=== PATIENT | male | born 1965 | race Caucasian/White ===

== ENCOUNTER 2018-08-13 17:43 | Emergency (ER) | payer BC, OTHER ==
[~2018-08-13] VITALS: Ht 177.8 cm; Wt 99.8 kg
[~2018-08-13 17:43] MED LIST: MTP25TSR PO
--- OUTSIDE RECORDS SUMMARY | 2018-08-13 17:48 | XMS REPORT | Continuity of Care Document ---
Author Author [facility] Organization [facility] Address Unknown Phone Unavailable Care Team Providers Care Manager Subway Name Role Phone MESSI ESQUIVEL Alexis DO PP Insurance Providers Payer Name Policy Number Subscriber Name Relationship [facility] [id number] Melissa Camryn 02 Advance Directives Directive Response Recorded Date Advance Directives N 10/17/12 4:54am Health Care Power of Greenhouse Superintendent N 10/17/12 4:54am Organ Donor Y 10/17/12 4:54am Problems No Known Problems or Medical conditions. Family History History Response Recorded Date/Time Hx Family Cancer Y mother kidney 4:55am Hx Family Lung Cancer Y sister 10/17/12 4 :55am Hx Family Cardiac Disorders N 10/17/12 4: 55am Social History History Response Recorded Date/Time Alcohol Use Occasionally Uses 10/17/12 4: 54am Recreational Drug Use N 10/17/12 4:54am Allergies, Adverse Reactions, Alerts Allergen Type Severity Reaction Last Updated Poison Sandy Extract Allergy Mild 10/17/12 tb-michele Allergy 10/17/12 Medications Medication Dose Units Route Sig Qty Days Metoprolol Succinate (Toprol Xl 25MG) 25 Mg PO DAILY Immunizations Name Given Type Date of Pneumonia Vaccine 09/20/11 H Date of Influenza Vaccine 01/20/12 H Response Recorded Date/Time Status not known Unknown Results No Known Relevant Diagnostic Tests, Laboratory Data and/or Discharge Summary.
--- OUTSIDE RECORDS SUMMARY | 2018-08-13 17:48 | XMS REPORT | Continuity of Care Document ---
Author Organization Unknown Address Unknown Allergies Active Description Code Type Severity Reaction Onset Reported/Identified Relationship to Patient Clinical Status Yes poison cornell extract [id number] Drug Allergy Mild N/A 10/17/2012 Yes tb-michele tb-michele Unknown N/A 10/17/2012 Medications There is no data. Problems Date Dx Coded Attending Type Code Diagnosis Diagnosed By 10/17/2012 ALICE AVITIA FACC, MARISA MADISON CCDS Ot 401.9 HYPERTENSION NOS 10/17/2012 ALICE AVITIA FACC, MARISA MADISON CCDS Ot 427.69 PREMATURE BEATS NEC 10/17/2012 MARISA JENKINS MD, FACC, FACP CCDS Ot 785.1 PALPITATIONS 10/17/2012 MARISA JENKINS MD, FACC, FACP CCDS Ot 786.50 CHEST PAIN NOS 09/23/2014 BAIMA, ROYCE L SHIM PLUG CUTTER Ot 785.1 07/18/2016 BAIMA, ROYCE L SHIM PLUG CUTTER Ot 785.1 PALPITATIONS 08/06/2017 BAIMA, ROYCE L SHIM PLUG CUTTER Ot 785.1 PALPITATIONS 06/19/2018 BAIMA, ROYCE L SHIM PLUG CUTTER Ot 785.1 PALPITATIONS Procedures There is no data. Results There is no data. Encounters ACCT No. Visit Date/Time Discharge Status Pt. Type Provider Facility Loc./Unit Complaint [id number] 01/20/2013 08:59:00 01/20/2013 23:59:59 CLS Outpatient ROYCE PENNY L SHIM PLUG CUTTER [facility] CARD PALPITATIONS [id number] 10/17/2012 03:12:00 10/17/2012 15:00:00 DIS Outpatient MARISA JENKINS MD, FACC, FACP CCDS [facility] CATH CHEST PAIN [id number] 08/13/2018 17:44:00 ACT Emergency ENEDINA TAYLOR MD [facility] ER DENTAL PAIN
--- OUTSIDE RECORDS SUMMARY | 2018-08-13 17:48 | XMS REPORT | Continuity of Care Document ---
Author Author [facility] Organization [facility] Address Unknown Phone Unavailable Care Team Providers Care Skin Diving Teacher Name Role Phone MESSI ESQUIVEL DO PP Insurance Providers Payer Name Policy Number Subscriber Name Relationship [facility] [id number] MelissaCamryn verdin 02 Advance Directives Directive Response Recorded Date Advance Directives N 10/17/12 4:54am Health Care Power of Solar Energy Systems Designer N 10/17/12 4:54am Organ Donor Y 10/17/12 [...] Recorded Date/Time Status not known Unknown Results Test Date Result Interp. Ref. Range Activated Partial Thromboplast Time October 17, 2012 2:50am 28 SEC N 24-35 Alanine Aminotransferase (ALT/SGPT) October 17, 2012 2:50am 65 U/L N 30-65 Albumin October 17, 2012 2:50am 4.2 G/DL N 3.4-5.0 Alkaline Phosphatase October 17, 2012 2:50am 122 U/L N 50-136 Aspartate Amino Transf (AST/SGOT) October 17, 2012 2:50am 31 U/L N 15-37 BUN/Creatinine Ratio October 17, 2012 2:50am 11 - Basophils # (Auto) October 17, 2012 2:50am 0.0 10^3/uL N 0.0-0.1 Basophils (%) (Auto) October 17, 2012 2:50am 0 % N 0-10 Blood Urea Nitrogen October 17, 2012 2:50am 15 MG/DL N 7-18 Calcium Level October 17, 2012 2:50am 8.9 MG/DL N 8.5-10.1 Carbon Dioxide Level October 17, 2012 2:50am 29 MMOL/L N 21-32 Chloride Level October 17, 2012 2:50am 98 MMOL/L L 101-110 Creatine Kinase MB October 17, 2012 2:50am 2.3 NG/ML N 0.0-3.6 Creatinine October 17, 2012 2:50am 1.4 MG/ DL H 0.6-1.3 Eosinophils # (Auto) October 17, 2012 2:50am 0.1 10^3/uL N 0.0-0.3 Eosinophils (%) (Auto) October 17, 2012 2:50am 1 % N 0-10 Glucose Level October 17, 2012 2:50am 108 MG/DL H 74-106 Hematocrit October 17, 2012 2:50am 43 % N 40-54 Hemoglobin October 17, 2012 2:50am 15.1 G/ DL N 13.3-17.7 Lymphocytes # (Auto) October 17, 2012 2:50am 3.1 X 10^3 N 1.0-4.0 Lymphocytes (%) (Auto) October 17, 2012 2:50am 34 % N 12-44 Magnesium Level October 17, 2012 2:50am 2.1 MG/DL N 1.8-2.4 Mean Corpuscular Hemoglobin October 17, 2012 2:50am 31 PG N 25-34 Mean Corpuscular Hemoglobin Concent October 17, 2012 2:50am 35 G/DL N 32-36 Mean Corpuscular Volume October 17, 2012 2:50am 90 FL N 80-99 Mean Platelet Volume October 17, 2012 2:50am 8.9 FL N 7.4-10.4 Monocytes # (Auto) October 17, 2012 2:50am 0.9 X 10^3 N 0.0-1.0 Monocytes (%) (Auto) October 17, 2012 2:50am 10 % N 0-12 Myoglobin October 17, 2012 2:50am 89 UG/L N 10-92 Neutrophils # (Auto) October 17, 2012 2:50am 4.9 X 10^3 N 1.8-7.8 Neutrophils (%) (Auto) October 17, 2012 2:50am 55 % N 42-75 Platelet Count October 17, 2012 2:50am 228 10^3/uL N 130-400 Potassium Level October 17, 2012 2:50am 3.4 MMOL/L L 3.6-5.0 Prothrombin Time October 17, 2012 2:50am 12.7 SEC N 12.2-14.7 Red Blood Count October 17, 2012 2:50am 4.81 10^6/uL N 4.35-5.85 Red Cell Distribution Width October 17, 2012 2:50am 12.3 % N 10.0-14.5 Sodium Level October 17, 2012 2:50am 133 MMOL/L L 135-145 Total Bilirubin October 17, 2012 2:50am 0.2 MG/DL N 0.0-1.0 Total Creatine Kinase October 17, 2012 2:50am 262 U/L H 1-205 Total Protein October 17, 2012 2:50am 8.2 G /DL N 6.4-8.2 Troponin I October 17, 2012 2:50am < 0.10 NG/ML 0.00-0.10 White Blood Count October 17, 2012 2:50am 9.0 10^3/uL N 4.3-11.0 Estimat Glomerular Filtration Rate October 17, 2012 2:50am 54 - INR Comment October 17, 2012 2:50am 1.0 N 0.8-1.4 Encounters Encounter Location Date/Time Admitted Inpatient [facility] 5:01am
[2018-08-13] MEDS ORDERED: METOCLOPRAMIDE 10 MG (REGLAN) TAB PO ONE (18:15)
[2018-08-13] MEDS ORDERED: METO-351 PO (18:15)
--- NOTE | 2018-08-13 18:15 | ED EENT ---
History of Present Illness General Chief Complaint: Dental Problems/Pain Stated Complaint: DENTAL PAIN Nursing Triage Note: AMB TO ROOM WAS EATING CANDY WHEN HE CRAKED UPPPER TOOTH L SIDE. CALLED ALL DENTIST OFFICE AND RECORDING SAID GO TO YOUR NEAREST ER History of Present Illness Date Seen by Provider: Aug 13, 2018 Time Seen by Provider: 17:55 Initial Comments 48 -year-old male presents for dental pain, prior to arrival he reports biting into a piece of candy and feeling like a crack occurred in his left upper tooth, #10. Was also noted to be hypertensive with blood pressure 143 /100, he was taking metoprolol 25 mg daily until December 2017. He discontinued it because he was busy with his father's , and he never resumed it. Patient's has call into Dr. Hill. Timing/Duration: abrupt Severity: mild Location: mouth Prearrival Treatment: no prearrival treatment Associated Symptoms: denies symptoms Allergies and Home Medications Allergies Coded Allergies: poison cornell extract (Verified Allergy, Mild, 10/17/12) Uncoded Allergies: tb-michele (Allergy, Unknown, 08/13/18) Home Medications Metoprolol Succinate 25 Mg Tab.sr.24h, 25 MG PO DAILY, (Reported) Metoprolol Succinate 25 Mg Tab.er.24h, 25 MG PO DAILY Prescribed by: NIGEL SANTANA on 08/13/18 [id number] Patient Home Medication List Home Medication List Reviewed: Yes Review of Systems Review of Systems Constitutional: no symptoms reported, see HPI Mouth: see HPI, loose teeth, pain All Other Systems Reviewed Negative Unless Noted: Yes Past Glhdvvt-Rolcct-Mygufu Hx Past Med/Social Hx: Reviewed Nursing Past Med/Soc Hx Patient Social History Alcohol Use: Occasionally Uses Recreational Drug Use: No Smoking Status: Never a Smoker Recent Foreign Travel: No Contact w/Someone Who Travel: No Recent Infectious Disease Expo: No Immunizations Up To Date Date of Pneumonia Vaccine: Sep 20, 2011 Date of Influenza Vaccine: Jan 20, 2012 Past Medical History Surgeries: Yes (heart cath 10/17/12) Respiratory: No Cardiac: No Neurological: No Reproductive Disorders: No Gastrointestinal: No Musculoskeletal: No Endocrine: No Cancer: No Psychosocial: No Integumentary: No Blood Disorders: No Family Medical History Hypertension Physical Exam Vital Signs Vital Signs - First Documented 08/13/18 17:46 Temp 96.5 Pulse 68 Resp 18 B/P (MAP) 143/100 (114) Pulse Ox 96 O2 Delivery Room Air Height, Weight, BMI Height: 5'10.00" Weight: 220lbs. oz. 99.984718lu; BMI Method:Stated General Appearance: WD/WN, no apparent distress Mouth/Throat: other (tooth 10 is loose, with decay noted on posterior aspect at gingival line. No dental fracture is noted. No abscess or inflammation noted. ) Neck: non-tender, full range of motion, supple, normal inspection; No lymphadenopathy (R), No lymphadenopathy (L) Cardiovascular: normal peripheral pulses, regular rate, rhythm Respiratory: chest non-tender, lungs clear, normal breath sounds Gastrointestinal: normal bowel sounds, non tender, soft Neurologic/Psychiatric: no motor/sensory deficits, alert, normal mood/affect, oriented x 3 Progress/Results/Core Measures Results/Orders My Orders Orders - NIGEL SANTANA Ibuprofen Tablet (Motrin Tablet) (08/13/18 18:12) Metoprolol Succinate (Xl) Tab (Toprol Xl (08/13/18 18:30) Medications Given in ED Current Medications Medications Dose Ordered Sig/Abhilash Route Start Time Stop Time Status Last Admin Dose Admin Metoprolol Succinate 25 mg ONCE ONCE PO 08/13/18 18:30 08/13/18 18:30 DC 08/13/18 18:23 25 MG Vital Signs/I&O 08/13/18 08/13/18 17:46 18:26 Temp 96.5 96.5 Pulse 68 68 Resp 18 18 B/P (MAP) 143/100 (114) 143/100 (114) Pulse Ox 96 96 O2 Delivery Room Air Blood Pressure Mean: 114 Progress Progress Note : Time: 17:55 Progress Note Patient seen and evaluated. received a call from their dentist, Dr. Hill, he will meet them at 1930 to treat the patient. Will give Ibuprofen 800 mg for pain, Toprol XL 25 mg for hypertension. Discharge instructions reviewed with patient. Stressed the importance of seeing Dr. Esquivel for follow-up for his hypertension. Departure Impression Primary Impression: Dental caries Additional Impressions: Loose, teeth Essential (primary) hypertension Disposition: 01 HOME, SELF-CARE Condition: Improved Departure-Patient Inst. Decision time for Depature: 18:10 Referrals: MESSI ESQUIVEL DO (PCP/Family) Primary Care Physician Patient Instructions: Tooth Decay, Adult (DC), High Blood Pressure (DC) Add. Discharge Instructions: Take blood pressure medication daily as directed. Keep her scheduled dental appointment with Dr. Hill. May alternate between ibuprofen 600 mg and Tylenol 650 mg every 4 hours for additional pain. Schedule follow-up appointment with Dr. Esquivel for blood pressure. Return to emergency department for new, urgent health care needs. All discharge instructions reviewed with patient and/or family. Voiced understanding. Scripts Metoprolol Succinate (Toprol Xl) 25 Mg Tab.er.24h 25 MG PO DAILY, #30 TAB 0 Refills Prov: NIGEL SANTANA 08/13/18 Copy Copies To 1: MESSI ESQUIVEL DO Copies To 2: EVE HILL DDS, AMY ARNP Aug 13, 2018 18:15
[2018-08-13] MEDS: IBUPROFEN 800 MG (MOTRIN) TAB PO STA (18:23)
[2018-08-13 18:26] VITALS: BP 143/100
== END 2018-08-13 18:26 | disposition home or self-care (01) ==
LOC: EDUNIT# 17:43 → ER 17:44
DX: K02.9 Dental caries, unspecified (principal); K08.89 Other specified disorders of teeth and supporting structures; I10 Essential (primary) hypertension; Z88.8 Allergy status to other drugs, medicaments and biological substances
CPT/HCPCS: 99283

== ENCOUNTER 2021-05-16 09:39 | Emergency (ER) | payer BC ==
[~2021-05-16] VITALS: Ht 178 cm; Wt 102.0 kg
[~2021-05-16 09:39] MED LIST changes: +METO-351 PO
[2021-05-16] MEDS ORDERED: ONDA4TAB11 PO (10:28)
[2021-05-16] MEDS ORDERED: BENZ100C18 PO (10:28)
[2021-05-16] MEDS ORDERED: BENZONATATE 100 MG (TESSALON) CAPSULE PO STA (10:30)
[2021-05-16] MEDS ORDERED: ONDANSETRON 4 MG (ZOFRAN) ORAL DISSOLVE TAB PO STA (10:30)
--- NOTE | 2021-05-16 10:30 | ED Cough/URI ---
General Chief Complaint: COVID19 Suspect/Confirmed Stated Complaint: COVID + Nursing Triage Note: PT AMB TO RM 9 WITH WITH C/O TESTING POSITIVE FOR COVID LAST FRIDAY AND STILL HAVING A FEVER AND VOMITTING. PT HAS TRIED TYLENOL AND IBUPROFEN Source: patient Exam Limitations: no limitations History of Present Illness Date Seen by Provider: May 16, 2021 Time Seen by Provider: 10:00 Initial Comments Patient is a 55-year-old male with a history of hypertension and hypercholesterolemia who presents to the emergency department 1 week post Covid positive test chief complaint generalized malaise, continuing cough, body aches, sore throat. Patient states he started getting symptoms on Friday the . He tested positive on Friday the . He saw his primary care provider, Dr. Esquivel and was prescribed a Z-Ivan. He has been taking this. Continues to have symptoms. Take 600 mg of ibuprofen every 6 hours, last dose was at 6 AM this morning. He denies any nausea or vomiting. He had a little bout of diarrhea he believes related to the Z-Ivan. No problems with urination. Diminished appetite. He is a non-smoker. Is not really short of breath. Room air sats noted to be 96%. Main complaint is the persistence of the cough and inability to sleep at night. All other review of systems reviewed and negative except as stated. Timing/Duration: week Severity/Quality: dry cough Prior Episodes/Possible Cause: illness exposure Modifying Factors: Worse With Coughing Associated Symptoms: other (nausea) Allergies and Home Medications Allergies Coded Allergies: poison cornell extract (Verified Allergy, Mild, 10/17/12) Uncoded Allergies: tb-michele (Allergy, Unknown, 08/13/18) Patient Home Medication List Home Medication List Reviewed: Yes Metoprolol Succinate (Toprol Xl 25MG) 25 Mg Tab.sr.24h, 25 MG PO DAILY, (Reported) Entered as Reported by: ROCÍO BENSON on 10/17/12 1438 Metoprolol Succinate (Toprol Xl) 25 Mg Tab.er.24h, 25 MG PO DAILY Prescribed by: NIGEL SANTANA on 08/13/18 1815 Review of Systems Review of Systems Constitutional: see HPI EENTM: no symptoms reported Respiratory: cough Cardiovascular: no symptoms reported Gastrointestinal: diarrhea, loss of appetite, nausea Genitourinary: no symptoms reported Musculoskeletal: muscle cramps Skin: no symptoms reported All Other Systems Reviewed Negative Unless Noted: Yes Past Uuybpbl-Ftrljc-Ojmraj Hx Patient Social History Tobacco Use?: No Substance use?: No Alcohol Use?: Yes Alcohol type: Beer Alcohol Frequency: Once in a while Pt feels they are or have been: No Immunizations Up To Date Influenza Vaccine Up-to-Date: No; Not Current Past Medical History Surgeries: Yes (heart cath 10/17/12) Respiratory: No Cardiac: No Neurological: No Reproductive Disorders: No Gastrointestinal: No Musculoskeletal: No Endocrine: No Cancer: No Psychosocial: No Integumentary: No Blood Disorders: No Family Medical History Hypertension Physical Exam Vital Signs - First Documented 05/16/21 09:50 Temp 37.1 Pulse 74 Resp 18 B/P (MAP) 136/89 (105) Pulse Ox 96 O2 Delivery Room Air Capillary Refill : Height: 5'10.00" Weight: 220lbs. oz. 99.008475lx; 32.00 BMI Method:Stated General Appearance: WD/WN, no apparent distress Eyes: Bilateral Eye Normal Inspection, Bilateral Eye PERRL, Bilateral Eye EOMI HEENT: PERRL/EOMI, pharynx normal, other (Appears adequately hydrated) Neck: full range of motion, supple, normal inspection Respiratory: lungs clear, normal breath sounds, no respiratory distress, no a ccessory muscle use, other (ROOM AIR SATS 96%) Cardiovascular: regular rate, rhythm (74bpm) Gastrointestinal: normal bowel sounds, non tender, soft Extremities: normal range of motion, non-tender, normal inspection, no pedal edema Neurologic/Psychiatric: alert, normal mood/affect, oriented x 3 Skin: normal color, warm/dry Progress/Results/Core Measures Suspected Sepsis SIRS Temperature: Pulse: 74 Respiratory Rate: 18 Blood Pressure 136 /89 Mean: 105 Results/Orders Vital Signs/I&O 05/16/21 09:50 Temp 37.1 Pulse 74 Resp 18 B/P (MAP) 136/89 (105) Pulse Ox 96 O2 Delivery Room Air Capillary Refill : Blood Pressure Mean: 105 Progress Note : Time: 10:26 Progress Note Patient looks good, adequately hydrated. Vital signs are completely stable, he is afebrile. Patient has no complaints of shortness of breath, lightheadedness dizziness/orthostasis. Will give him some oral Zofran here and a prescription to his pharmacy. I do not have any clinical or objective findings to warrant further testing at this time. Patient strongly encouraged to push fluids, take Tylenol and ibuprofen. We will give him some Tessalon Perles as well as recommendations for tqeo-tyc-igzgwlt Robitussin for his cough. All questions are sought and answered. Departure Impression Primary Impression: COVID-19 Disposition: 01 HOME, SELF-CARE Condition: Stable Departure-Patient Inst. Decision time for Depature: 10:27 Referrals: MESSI ESQUIVEL DO (PCP/Family) Primary Care Physician Patient Instructions: COVID-19 ED Add. Discharge Instructions: Push lots of fluids to stay well-hydrated over the next 2 to 3 days. Continue alternating Tylenol and ibuprofen as needed for body aches and fever. Always take ibuprofen with a little food. I have sent a prescription for nausea medicines as well as cough medications to [facility] pharmacy. You can take both of these every 8 hours as needed for nausea and cough. You can also take edzd-wqk-nywigsi Robitussin-DM cough syrup in addition to the medications I have prescribed to help with cough. NyQuil may also help if you are experiencing congestion, runny nose. NyQuil does contain Tylenol, do not take extra Tylenol while taking NyQuil. Return to the emergency room for worsening shortness of breath, high fever, vomiting or any other emergent concerning symptoms. Scripts Benzonatate (TESSALON PERLES) 100 Mg Capsule 200 MG PO Q8H PRN for cough, #20 CAP Prov: SETH MUSTAFA MD 05/16/21 Ondansetron (Ondansetron Odt) 4 Mg Tab.rapdis 4 MG PO Q8H PRN for nausea, #20 TAB Prov: SETH MUSTAFA MD 05/16/21 Copy Copies To 1: MESSI ESQUIVEL KATHRYN M MD May 16, 2021 10:30
[2021-05-16 11:08] VITALS: BP 130/87
== END 2021-05-16 11:08 | disposition home or self-care (01) ==
LOC: EDUNIT# 09:39 → ER 09:40
DX: U07.1 COVID-19 (principal)
CPT/HCPCS: 99283